=== PATIENT | male | born 1970 | race Caucasian/White ===

== ENCOUNTER 2021-02-27 13:03 | Emergency (ER) | payer OTHER ==
[~2021-02-27] VITALS: Ht 188 cm; Wt 90.7 kg
[2021-02-27 13:06] VITALS: BP 143/82
--- NOTE | 2021-02-27 13:10 | NUR ---
Pt ambulated to ER bed 12.
--- NOTE | 2021-02-27 13:13 | NUR ---
Patient ambulated to bed 12 with steady/even gait.
--- NOTE | 2021-02-27 13:24 | NUR ---
50 Y/O MALE FROM HOME C/O RIGHT SIDED FACIAL NUMBNESS WITH PAIN THAT RADIATES TO RIGHT ARM X 2 WKS. PT STATES 10/10 HEADACHE ONLY ON RIGHT SIDE. PT WAS SEEN AT [facility] AND SENT WITH PSYCH FOLLOWUP. PT STATES HE FEELS CONFUSED AND "CLOUDY" AT TIMES WITH LEGARHY. SKIN WARM, DRY, INTACT. AWAKE AND ALERT. MEDHX: DENIES
--- NOTE | 2021-02-27 13:25 | NUR ---
Dr. Freitas at pt bedside for further evaluation.
[2021-02-27] MEDS ORDERED: PROCHLORPERAZINE 10 MG/2 ML VIAL IVP ONE (13:30)
[2021-02-27] MEDS ORDERED: NACL 0.9% 1,000 ML IV ONE (13:30)
[2021-02-27] MEDS ORDERED: diphenhydrAMINE 50 MG/ML VIAL IVP ONE (13:30)
--- NOTE | 2021-02-27 13:50 | NUR ---
CONSENT SIGNED FOR CT BY PATIENT, NURSE, AND ERMD
--- NOTE | 2021-02-27 14:12 | NUR ---
PT TAKEN TO CT VIA W/C
--- NOTE | 2021-02-27 14:36 | NUR ---
PATIENT RETURNED FROM CT VIA WHEELCHAIR
--- NOTE | 2021-02-27 14:38 | NUR ---
PT RETURNED FROM CT VIA W/C
--- NOTE | 2021-02-27 14:48 | NUR ---
LAB DRAWN BEDSIDE BY RN. BLOOD WORK GIVEN TO SANDRA IRENE
[2021-02-27 15:19] LABS: BASOPHILS % (AUTO) 0.6 % (0.0-2.0); EOSINOPHILS % (AUTO) 0.3 % (0.0-4.0); HEMATOCRIT 39.1 % (36-52); HEMOGLOBIN 12.7 g/dL (12.0-18.0); LYMPHOCYTES % (AUTO) 12.9 % (20.5-51.1); MEAN CORPUSCULAR HEMOGLOBIN 25 pg (27-31); MEAN CORPUSCULAR HGB CONC 33 g/dL (33-37); MEAN CORPUSCULAR VOLUME 76.4 fL (80-94); MONOCYTES # (AUTO) 0.6 K/uL (0.8-1.0); MONOCYTES % (AUTO) 7.8 % (1.7-9.3); NEUTROPHILS # (AUTO) 6.3 K/uL (1.8-7.7); NEUTROPHILS % (AUTO) 78.4 % (42.2-75.2); PLATELET COUNT (AUTO) 167 K/uL (140-450); RED BLOOD CELL COUNT(AUTO) 5.11 MIL/uL (4.20-6.10); RED CELL DISTRIBUTION WIDTH 16.3 % (11.6-13.7)
[2021-02-27 15:20] LABS: ANION GAP 17.3 (8-16); CARBON DIOXIDE 26.3 mmol/L (21-32); CREATININE 0.8 mg/dL (0.6-1.3); POTASSIUM 3.6 mmol/L (3.5-5.1)
--- NOTE | 2021-02-27 16:05 | NUR ---
CHECKED ON PT. PT CURRENTLY ASLEEP IN ROOM
[2021-02-27] MEDS ORDERED: IBUP-2213 PO (16:38)
[2021-02-27 16:44] VITALS: BP 158/92
--- NOTE | 2021-02-27 16:45 | NUR ---
Patient discharged with v/s stable. Written and verbal after care instructions given and explained. Patient alert, oriented and verbalized understanding of instructions. Ambulatory with steady gait. All questions addressed prior to discharge. ID band removed. Patient advised to follow up with PMD. Rx of IBUPROFEN 600 MG given. Patient educated on indication of medication including possible reaction and side effects. Opportunity to ask questions provided and answered.
== END 2021-02-27 16:45 | disposition home or self-care (01) ==
LOC: MED 13:03
DX: R51.9 Headache, unspecified (principal); R20.2 Paresthesia of skin; R42 Dizziness and giddiness
CPT/HCPCS: 36415; 70450; 70496; 70498; 80048; 84484; 85025; 85651; 93005; 96361; 96374; 96375; 99285; J0780; J1200; Q9967